=== PATIENT | male | born 1985 | race Caucasian/White ===

== ENCOUNTER 2017-04-03 07:24 | Outpatient (CLI) | payer OTHER ==
[2017-04-03] MEDS ORDERED: GADOBUTROL 10 MMOL/10 ML SYRINGE IVP ONE (08:45)
--- NOTE | 2017-04-03 10:35 | MRI Report ---
EXAM: MRI BRAIN WITHOUT AND WITH CONTRAST EXAM DATE: 04/03/2017 09:33 AM. CLINICAL HISTORY: Report of previous head trauma. Lower extremity tingling. Neck pain. COMPARISON: None. TECHNIQUE: Multiplanar, multisequence T1-weighted and fluid-sensitive MR sequences of the brain were performed. Sequences optimized for routine and white matter evaluation. Other: None. Without and with IV Contrast: 9.5 mL Gadavist. FINDINGS: Brain Volume: Normal for age. Parenchyma/Dura: No acute or recent ischemic infarct. No cerebral edema, normal-appearing white matte r for age. No mass effect, midline shift or abnormal subdural fluid collection. No intracranial enhan cing or space-occupying mass. Subtle amorphous enhancement in the subcortical right temporal lobe whi te matter, likely capillary telangiectasia or subtle developmental venous anomaly, no edema or mass e ffect. Ventricles/Cisterns: Normal. No hydrocephalus. Sinuses: No acute sinus or mastoid disease. Bones: No focal pathologic-appearing marrow signal changes in the skull or clivus. Other: The major arterial skull base flow-voids are present. IMPRESSION: No acute intracranial abnormality or enhancing mass. No evidence for significant white ma tter signal abnormality. Amorphous subcortical enhancement in the right temporal lobe is probably an incidental venous vascular anomaly. [facility] Referring Provider Line: [phone] SITE ID: [id number]
--- NOTE | 2017-04-03 11:21 | MRI Report ---
EXAM: MRI CERVICAL SPINE WITHOUT AND WITH CONTRAST EXAM DATE: 04/03/2017 09:00 AM. CLINICAL HISTORY: Neck pain. Report of previous trauma. Patient complains of bilateral lower extremit y tingling. COMPARISON: None. TECHNIQUE: Multiplanar, multisequence T1-weighted and fluid-sensitive sequences of the cervical spine before and after administration of intravenous contrast. IV contrast: 9.5 mL Gadavist. Other: None. FINDINGS: Neurologic Structures: There is a small focus of abnormal T2 hyperintensity without enhancement invol ving a short segment of the cervical cord centered at the C3-C4 intervertebral disk space. This lesio n measures about 4 mm AP and 2.5 mm craniocaudal, reference images 5, 6 and 7 from series 501, for ex ample. This is probably associated with minimal cord volume loss. Otherwise unremarkable appearance of the cervical spinal cord. Alignment: Normal. No scoliosis or spondylolisthesis. Bone Marrow: Vertebral body heights are maintained. No acute marrow edema. Probable atypical hemangio ma near the upper anterior corner of the C7 vertebral body. Interspace Levels/Facets: C1-C2: Unremarkable. C2-C3: Unremarkable. C3-C4: Minimal ventral thecal sac indentation by a shallow broad-based disk bulge. Minimal foraminal stenosis. There is mild bilateral uncinate process hypertrophy. No significant central stenosis or co rd impingement. Midline AP dimension of the central canal is about 9 mm. C4-C5: Minimal uncinate process hypertrophy may be present. No significant stenosis. No focal disk he rniation or intervertebral disk space narrowing. C5-C6: Minimal broad-based disk bulge and additional asymmetric left intraforaminal shallow protrusio n with uncinate process hypertrophy. Mild left foraminal stenosis. C6-C7: Unremarkable. C7-T1: Unremarkable. Spinal Canal: No enhancing lesions within the spinal canal. No epidural abscess. Musculature: Normal. No edema, enhancement, or fatty atrophy. Other: None. IMPRESSION: 1. Small focus of signal abnormality in the cervical cord at the C3-C4 level, likely with minimal vol ume loss. This is more likely chronic focal myelomalacia than acute edema or other active process. 2. Mild chronic appearing degenerative changes are noted at multiple levels, no evidence for high-gra de stenosis or definite nerve root impingement. [facility] Referring Provider Line: [phone] SITE ID: [id number]
== END 2017-04-03 07:25 | disposition home or self-care (01) ==
LOC: DI 07:24
PROVIDERS: ATTEND General Practice
DX: M50.30 Other cervical disc degeneration, unspecified cervical region (principal); R93.7 Abnormal findings on diagnostic imaging of other parts of musculoskeletal system
CPT/HCPCS: 70553; 72156; A9585

== ENCOUNTER 2018-03-05 09:06 | Outpatient (CLI) | payer OTHER ==
[~2018-03-05 09:06] MED LIST: IOTHALAMATE MEGLUMINE 50 ML VIAL ONE
[2018-03-05] MEDS ORDERED: GADOPENTETATE DIMEGLUMINE 5 ML VIAL IVP ONE (09:58)
[2018-03-05] MEDS ORDERED: BUFFERED LIDOCAINE 10 ML SYRINGE IU ONE (09:58)
[2018-03-05] MEDS ORDERED: IOTHALAMATE MEGLUMINE 50 ML VIAL IVP ONE (09:58)
--- NOTE | 2018-03-05 12:09 | XRAY Report ---
FLUOROSCOPICALLY-GUIDED RIGHT SHOULDER INJECTION FOR MR ARTHROGRAM: 03/05/2018 CLINICAL INDICATION: Pain in right shoulder. TECHNIQUE/FINDINGS: Following obtaining informed consent, the patient's right shoulder was prepped and draped in the usual sterile fashion. The skin and soft tissues were anesthetized with lidocaine. A spinal needle was inserted into the right glenohumeral joint, and following confirmation of needle positioning, a combination of iodinated contrast, dilute gadolinium, and lidocaine was injected intraarticularly. The patient tolerated the procedure well. No immediate complications. Spot image reveals no evidence of contrast extravasation. IMPRESSION: SUCCESSFUL RIGHT SHOULDER INJECTION FOR MR ARTHROGRAM. FLUOROSCOPY TIME: 16 seconds; one spot image obtained. TD: 03/05/2018 11:41
--- NOTE | 2018-03-05 12:49 | MRI Report ---
EXAM: RIGHT SHOULDER MRI ARTHROGRAM WITH CONTRAST EXAM DATE: 03/05/2018 10:06 AM. CLINICAL HISTORY: Pain in right shoulder. COMPARISON: None. TECHNIQUE: Multiplanar, multisequence T1-weighted and fluid-sensitive sequences of the shoulder after an arthrographic injection of dilute gadolinium, dictated under a separate exam. Other: None. FINDINGS: Acromioclavicular Region: The acromion is type II. Acromioclavicular joint is moderately osteoarthrit ic. The coracoacromial and coracoclavicular ligaments are intact. There is no contrast or fluid in th e subacromial/subdeltoid bursa. Glenohumeral Region: No subluxation. No loose bodies. The articular cartilage is unremarkable. The gl enohumeral ligaments and joint capsule are unremarkable. Bone Marrow: No fracture, marrow edema or bone lesions. Labrum: There is a small amount of contrast material outlining superior recess at the glenoid labrum. No tears. Biceps Tendon: The long head of the biceps tendon and biceps sarah are intact. Musculature/Rotator Cuff: Some increased T2 signal without partial or full-thickness tearing is seen at the supraspinatus and infraspinatus portions of the rotator cuff. No proximal muscular edema or fa tty atrophy. Other: The subcutaneous tissues are unremarkable. IMPRESSION: 1. Type II unipartite undersurface osseous acromion shape. Acromioclavicular joint is moderately oste oarthritic. 2. Small amount of contrast material outlining superior recess of the glenoid labrum, no tears. 3. Tendinopathy without partial or full-thickness tearing at the supraspinatus and infraspinatus port ions of the rotator cuff. No proximal muscular edema or fatty atrophy. [facility] Referring Provider Line: [phone] SITE ID: [id number]
== END 2018-03-05 09:07 | disposition home or self-care (01) ==
LOC: DI 09:06
PROVIDERS: ATTEND Student in an Organized Health Care Education/Training Program
DX: M19.011 Primary osteoarthritis, right shoulder (principal); M25.811 Other specified joint disorders, right shoulder
CPT/HCPCS: 23350; 73222; 77002; Q9961

== ENCOUNTER 2019-07-27 13:53 | Emergency (ER) | payer OTHER ==
--- NOTE | 2019-07-27 14:52 | ED Physician Documentation ---
History of Present Illness - Stated complaint Stated Complaint: RT ANKLE INJ - Chief complaint Chief Complaint: Trauma Ext - Additonal information Additional information: This is a 34-year-old male presents with right ankle pain after an inversion injury. Patient was doing box jumps last Friday and he came down inverting his ankle, he felt a pop in his ankle, had acute shooting pain. He did some rest ice and elevation, on the pain continued he went in for x-rays today which reportedly showed an avulsion fracture. The x-rays were done at the [facility]. He was planning to follow-up with a physician, however his work asked that he c ome in to work starting today, and he has had difficulty and pain with ambulation even with crutches, So he presented here for further evaluation/ a second opinion. He does not have images from his [facility] visit. No numbness, or tingling. Review of Systems Skin: reports: Other (bruising over right ankle) Musculoskeletal: reports: Extremity pain, Joint swelling Neurologic: denies: Focal weakness PD PAST MEDICAL HISTORY - Present Medications Home Medications: Ambulatory Orders Medication Instructions Recorded Confirmed Acetaminophen 650 mg PO Q6HR #30 tablet 07/27/19 Ibuprofen 600 mg PO Q6H PRN #30 tablet 07/27/19 - Allergies Allergies/Adverse Reactions: Allergies Allergy/AdvReac Type Severity Reaction Status Date / Time No Known Drug Allergies Allergy Verified 07/27/19 13:55 PD ED PE NORMAL - Vitals Vital signs reviewed: Yes - General General: Alert and oriented X 3, No acute distress - HEENT HEENT: PERRL - Cardiac Cardiac: Strong equal pulses - Respiratory Respiratory: No respiratory distress - Derm Derm: Warm and dry, No rash - Extremities Extremities: Other (There is extensive bruising on the medial and lateral aspect of the right ankle. There is edema over the ankle to the level of the lower weber. Sensation is intact light touch over the entire foot, there are 2+ DP and PT pulses. Patient is able to wiggle all toes) - Neuro Neuro: Alert and oriented X 3 - Psych Psych: Normal mood, Normal affect Results - Vitals Vitals: Oxygen O2 Source Room air - Rads (name of study) XR ankle Radiology: Other (No discrete fracture. Likely calcification distal to the medial malleolus) PD MEDICAL DECISION MAKING - ED course Complexity details: considered differential (Sprain, fracture, dislocation, avulsion fracture) ED course: Pt presents with ankle pain after an inversion injury. Limb is neurovascularly intact. XR shows no obvious fracture, a possible calcification medially. He has significant bruising both medially and laterally and clinically he has a severe sprain. Avulsion fracture is also possible. I provided him with a walking boot for more stability/support. He has crutches. I provided a note for work and recommended continued close follow up with his PCP or an orthopod. Return precautions discussed and patient was discharged home. Departure - Departure Disposition: Home, Self Care Clinical Impression: Ankle sprain Qualifiers: Encounter type: initial encounter Involved ligament of ankle: unspecified ligament Laterality: right Qualified Code(s): S93.401A - Sprain of unspecified ligament of right ankle, initial encounter Condition: Good Follow-Up: DESTINY OLIVAREZ MD [Primary Care Provider] - (As scheduled) Prescriptions: Acetaminophen 650 mg PO Q6HR #30 tablet Ibuprofen 600 mg PO Q6H PRN #30 tablet PRN Reason: Pain Comments: You were seen today for ankle pain. You may have a small avulsion fracture on the medial side of your ankle, and it appears that you have a severe sprain of your ankle. You may use the walking boot to help provide stability to the joint, and use crutches to help avoid weightbearing until your pain is improving. [place] It is a good idea to follow-up with a sports medicine or orthopedic doctor. If you develop increasing pain, weakness, or numbness, return to the emergency department. Forms: Activity restrictions Discharge Date/Time: 07/27/19 17:20
--- NOTE | 2019-07-27 16:06 | XRAY Report ---
Reason: Inversion injury 4 days ago, swelling Procedure Date: 07/27/2019 Accession Number: [id number] / [id number] Procedure: XR - Ankle 3 View RT CPT Code: FULL RESULT: EXAM: RIGHT ANKLE RADIOGRAPHY EXAM DATE: 07/27/2019 03:48 PM. CLINICAL HISTORY: Inversion injury 4 days ago, swelling. COMPARISON: None. TECHNIQUE: 3 views. FINDINGS: Bones: No discrete fractures or bone lesions. Joints: No effusion. No subluxations. The ankle mortise is normally aligned. Soft Tissues: Bilateral malleolus soft tissue swelling visualized. A small calcified body, 2 x 3 mm distal to the medial malleolus visualized, likely nonspecific soft tissue calcification. IMPRESSION: Bilateral malleoli soft tissue swelling; negative for fracture, dislocation or subluxation in the right ankle. [facility]
[2019-07-27 16:43] VITALS: BP 136/83
== END 2019-07-27 17:20 | disposition home or self-care (01) ==
LOC: ED 13:53
DX: S93.401A Sprain of unspecified ligament of right ankle, initial encounter (principal); S90.01XA Contusion of right ankle, initial encounter; X50.1XXA Overexertion from prolonged static or awkward postures, initial encounter; Y93.A3 Activity, aerobic and step exercise
CPT/HCPCS: 99283

== ENCOUNTER 2019-09-28 07:21 | Outpatient (CLI) | payer OTHER ==
--- NOTE | 2019-09-28 15:06 | MRI Report ---
Reason: PAIN IN RT ANKLE Procedure Date: 09/28/2019 Accession Number: [id number] / [id number] Procedure: MRI - Ankle RT W/O CPT Code: Final Report FULL RESULT: EXAM: RIGHT ANKLE/HINDFOOT MRI WITHOUT CONTRAST EXAM DATE: 09/28/2019 08:30 AM. CLINICAL HISTORY: Right ankle pain. COMPARISON: 07/27/2019 radiograph. TECHNIQUE: Multiplanar, multisequence T1-weighted and fluid-sensitive sequences of the ankle/hindfoot without contrast. Other: None. FINDINGS: Bones: Trabecular fractures are demonstrated in the medial portion of the navicular (series 601, image 17; series 701, image 18). This involves the medial 8 mm of the bone and there is no displacement.. Marrow edema is in the medial malleolus at the origin of the deep deltoid ligament. There is also minimal edema in the fibular tip near the origin and insertion of lateral ligaments. Articular Cartilage: Unremarkable. Ligaments: The anterior and posterior tibiofibular and posterior talofibular ligaments are intact. The anterior tibiofibular ligament is edematous and thickened. There is a partial tear on the fibular side. The surrounding soft tissues have mild edema. The calcaneofibular ligament has at least a grade 2 sprain proximally. The ligament is thickened with poor visualization of the proximal attachment. The deep and superficial deltoid and spring ligaments are intact. Anterior Tendons: The tibialis anterior, extensor hallucis longus, and extensor digitorum longus tendons are unremarkable. Medial Tendons: The tibialis posterior, flexor digitorum longus, and flexor hallucis longus tendons are unremarkable. Lateral Tendons: A longitudinal tear of the peroneus brevis tendon is seen (series 601, image 22; series 1001, image 27). The peroneus longus tendon has moderate increased T2 signal. Achilles Tendon: The Achilles tendon is unremarkable. Musculature: No edema or fatty atrophy. Other: A mild tibiotalar joint effusion is present. A mild posterior subtalar joint effusion is present. The contents of the sinus tarsi and tarsal tunnel are unremarkable. No plantar fasciitis. Subcutaneous edema surrounds the ankle. IMPRESSION: 1. Trabecular fracture of the very medial portion of the navicular. 2. Grade 2 sprain of the anterior talofibular ligament. 3. Grade 2-3 sprain of the calcaneofibular ligament. 4. Longitudinal tear of the peroneus brevis tendon. 5. Moderate peroneus longus tendinosis. [facility]
== END 2019-09-28 07:22 | disposition home or self-care (01) ==
LOC: DI 07:21
PROVIDERS: ATTEND Orthopaedic Surgery
DX: S92.254A Nondisplaced fracture of navicular [scaphoid] of right foot, initial encounter for closed fracture (principal); S93.491A Sprain of other ligament of right ankle, initial encounter; S93.411A Sprain of calcaneofibular ligament of right ankle, initial encounter; S96.811A Strain of other specified muscles and tendons at ankle and foot level, right foot, initial encounter